=== PATIENT | female | born 1970 | race Caucasian/White ===

== ENCOUNTER 2018-02-21 09:50 | Emergency (ER) | payer SELFPAY ==
--- NOTE | 2018-02-21 10:57 | ER ---
Nurse's Notes [facility] Name: Brodie Irwin Age: 47 yrs Sex: Female : 1970 Arrival Date: 02/21/2018 Time: 09:53 Bed 24 Private MD: None, None Diagnosis: Encounter for screening, unspecified Presentation: 02/21 10:07 Presenting complaint: Patient states: "I think I got bitten by a spider yesterday". Pt aa5 reports insect bite to right thumb. Transition of care: patient was not received from another setting of care. Onset of symptoms was February 2018. Risk Assessment: Do you want to hurt yourself or someone else? Patient reports no desire to harm self or others. Initial Sepsis Screen: Does the patient meet any 2 criteria? No. Patient's initial sepsis screen is negative. Does the patient have a suspected source of infection? No. Patient's initial sepsis screen is negative. Care prior to arrival: None. 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 - Social history:: Smoking status: Patient uses tobacco products, smokes one-half pack cigarettes per day. - Ebola Screening: : No symptoms or risks identified at this time. Assessment: 10:35 Reassessment: pt approaches main nurse's station, speaking loudly, standing in front of iw Dr. Chi's desk, states "I wanna know why you aren't treating me medically for my spider bite and fever blister" Dr. Chi calmly explained that he was not denying her treatment and that if she wan't to speak more about the process he would speak with her in the room, pt is refusing to go back to her room, ER bed 24, security called to Nurse's Station and are speaking to pt, pt has been medically screened and has declined medical treatment, pt escorted out od dept by security staff. Vital Signs: 10:08 BP 141 / 86; Pulse 110; Resp 16 S; Temp 97.8(TE); Pulse Ox 96% on R/A; Weight 72.57 kg aa5 (R); Height 5 ft. 8 in. (172.72 cm) (R); Pain 8/10; 10:08 Body Mass Index 24.33 (72.57 kg, 172.72 cm) aa5 ED Course: 09:53 Patient arrived in ED. mr 09:53 None, None is Private Physician. mr 10:07 Triage completed. aa5 10:07 Arm band placed on. aa5 10:16 Lo Ybarra, RN is Primary Nurse. aj1 10:27 Jairo Chi MD is Attending Physician. gs Administered Medications: No medications were administered Outcome: 10:56 Discharge ordered by . 11:03 Medical screen evaluation completed per provider. Patient declined treatment. aj1 11:03 Condition: good 11:03 Following a medical screening exam, the patient was provided information regarding alternative care sites and resources available per registration personnel. 11:04 Patient left the ED. aj1 Signatures: Lo Ybarra, RN RN aj Angelic Chen Johanna Geller, RN MARQUIS Cathy Mccrary RN RN aa5 Jairo Chi MD MD
--- NOTE | 2018-02-21 10:57 | EDPHYS ---
Physician Documentation [facility] Name: Brodie Irwin Age: 47 yrs Sex: Female : 1970 Arrival Date: 02/21/2018 Time: 09:53 Bed 24 Private MD: None, None ED Physician Jairo Chi HPI: 02/21 10:40 This 47 yrs old Female presents to ER via Ambulatory with complaints of gs Insect Bite. 10:40 Description: The affected area is very small, draining. Onset: The symptoms/episode gs began/occurred 2 day(s) ago, and became persistent today. Possible cause(s): insect sting, spider bite, pt says it was a furry spider, and blistering on right thumb. blister popped and bled today brought picture of it bleeding. Associated signs and symptoms: Pertinent negatives: fever, swelling. Modifying factors: the symptoms are alleviated by nothing, the symptoms are aggravated by nothing. Severity of symptoms: At their worst the symptoms were very mild, in the emergency department the symptoms are unchanged. The patient has not experienced similar symptoms in the past. 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 - Social history:: Smoking status: Patient uses tobacco products, smokes one-half pack cigarettes per day. - Ebola Screening: : No symptoms or risks identified at this time. ROS: 10:40 Skin: Positive for says has tender area in nose left nare is a fever blister is gs concerned it will turn into shingles wants valtrex to treat. 10:40 All other systems are negative. Exam: 10:40 Head/Face: Normocephalic, atraumatic. Eyes: Pupils equal round and reactive to light, gs extra-ocular motions intact. Lids and lashes normal. Conjunctiva and sclera are non-icteric and not injected. Cornea within normal limits. Periorbital areas with no swelling, redness, or edema. Neck: Trachea midline, no thyromegaly or masses palpated, and no cervical lymphadenopathy. Supple, full range of motion without nuchal rigidity, or vertebral point tenderness. No Meningismus. Chest/axilla: Normal chest wall appearance and motion. Nontender with no deformity. No lesions are appreciated. Cardiovascular: Regular rate and rhythm with a normal S1 and S2. No gallops, murmurs, or rubs. Normal PMI, no JVD. No pulse deficits. Respiratory: Lungs have equal breath sounds bilaterally, clear to auscultation and percussion. No rales, rhonchi or wheezes noted. No increased work of breathing, no retractions or nasal flaring. Abdomen/GI: Soft, non-tender, with normal bowel sounds. No distension or tympany. No guarding or rebound. No evidence of tenderness throughout. Back: No spinal tenderness. No costovertebral tenderness. Full range of motion. 10:40 Constitutional: The patient appears alert, awake. 10:40 ENT: Nose: Nasal mucosa: erythematous, no lesion no fever blister, mild mucosal tenderness. 10:40 Musculoskeletal/extremity: ROM: no acute changes, Circulation is intact in all extremities. Sensation intact. 10:40 Skin: cellulitis, is not appreciated, injury, small puncture or insect bite to volar right thumb no drainage. pt states she unroofed blister with needle and bled. 10:40 Psych: Behavior/mood is anxious. 10:57 Musculoskeletal/extremity: Edema, 1+ to the left foot and right foot is noted, trace gs edema. Vital Signs: 10:08 BP 141 / 86; Pulse 110; Resp 16 S; Temp 97.8(TE); Pulse Ox 96% on R/A; Weight 72.57 kg aa5 (R); Height 5 ft. 8 in. (172.72 cm) (R); Pain 8/10; 10:08 Body Mass Index 24.33 (72.57 kg, 172.72 cm) aa5 MDM: 10:27 Patient medically screened. gs 10:40 Differential diagnosis: insect bite, nasal mucosal irritation rhinitis cellulitis. Data gs reviewed: vital signs, nurses notes. 10:40 ED course: pt upset after mse process, was demanding valtrex for her non fever blister gs i told her i could not prescribe something that wasn't needed. Administered Medications: No medications were administered Disposition: 02/21/18 10:56 Discharged to Home. Impression: Encounter for screening, unspecified. - Condition is Stable. - Medication Reconciliation Form, Thank You Letter, Antibiotic Education, Prescription Opioid Use form. - Follow up: Private Physician; When: 1 - 2 days; Reason: Re-evaluation by your physician. Signatures: Lo Ybarra RN RN aj1 Cathy Mccrary RN RN aa5 Jairo Chi MD MD gs Corrections: (The following items were deleted from the chart) 11:04 10:56 02/21/2018 10:56 Discharged to Home. Impression: Encounter for screening, aj1 unspecified. Condition is Stable. Forms are Medication Reconciliation Form, Thank You Letter, Antibiotic Education, Prescription Opioid Use. Follow up: Private Physician; When: 1 - 2 days; Reason: Re-evaluation by your physician. gs
== END 2018-02-21 11:04 | disposition home or self-care (01) ==
LOC: ER 09:50
DX: S60.361A Insect bite (nonvenomous) of right thumb, initial encounter (principal); W57.XXXA Bitten or stung by nonvenomous insect and other nonvenomous arthropods, initial encounter; Y92.89 Other specified places as the place of occurrence of the external cause; Z13.89 Encounter for screening for other disorder
CPT/HCPCS: 99281

== ENCOUNTER 2018-08-12 12:03 | Emergency (ER) | payer SELFPAY ==
--- OUTSIDE RECORDS SUMMARY | 2018-08-12 12:05 | XMS REPORT | Clinical Summary ---
:1970 Author Organization [facility] Address [address] [place] [address] Care Team Providers Name Role Phone Asked, No Pcp Primary Care Provider Unavailable Allergies Not on File Medications Not on file Active Problems Not on file Social History Tobacco Use Types Packs/Day Years Used Date Never Assessed Sex Assigned at Date Recorded Not on file Job Start Date Occupation Industry Not on file Not on file Not on file Travel History Travel Start Travel End No recent travel history available. Last Filed Vital Signs Not on file Plan of Treatment Health Maintenance Due Date Last Done Comments MMR VACCINES (1 of 1 - Standard 1970 series) VARICELLA VACCINES (1 of 2 - 2-dose 1982 adolescent series) CERVICAL CANCER SCREENING 1990 INFLUENZA VACCINE 04/19/2018 HEPATITIS B VACCINES Aged Out No longer eligible based on patient's age to complete this topic IPV VACCINES Aged Out No longer eligible based on patient's age to complete this topic MENINGOCOCCAL VACCINE Aged Out No longer eligible based on patient's age to complete this topic Results Not on fileafter 08/11/2017 Advance Directives Patient has advance care planning documents on file. For more information, please contact:[phone] [place] [address]
== END 2018-08-12 12:17 | disposition left against medical advice (07) ==
LOC: ER 12:03
DX: Z53.21 Procedure and treatment not carried out due to patient leaving prior to being seen by health care provider (principal); R07.9 Chest pain, unspecified

== ENCOUNTER 2018-08-14 08:28 | Inpatient (IN) | payer SELFPAY ==
--- OUTSIDE RECORDS SUMMARY | 2018-08-14 08:30 | XMS REPORT | Clinical Summary ---
:1970 Author Organization [facility] Address [address] [place] [address] Care Team Providers Name Role Phone Asked, [...] complete this topic Results Not on fileafter 08/13/2017 Advance Directives Patient has advance care planning documents on file. For more information, please contact:[phone] [place] [address]
[2018-08-14] MEDS ORDERED: ONDANSETRON 4 MG/2 ML VIAL ONE ×2 (08:51→21:43)
[2018-08-14] MEDS ORDERED: DIAZEPAM 10 MG/2 ML INJ SYRINGE ONE ×6 (08:52→22:38)
[2018-08-14] MEDS ORDERED: NA CHLORIDE 0.9% 1,000 ML ONE (08:52)
[2018-08-14 08:59] LABS: Absolute Lymphocytes (CBC) 1.5 K/uL (0.7-4.9); Absolute Monocytes 0.3 K/uL (0.1-1.3); Absolute Neutrophil 3.3 K/uL (1.8-8.0); Basophils % 0.4 % (0-1.3); Eosinophils % 0.2 % (0-4.4); Hematocrit 37.4 % (36.0-45.0); Lymphocytes % 29.8 % (15.3-44.8); MCH 32.9 pg (27.0-35.0); MCV 96.8 fL (80-100); MPV 8.2 fL (7.6-11.3); Monocytes % 6.7 % (3.3-12.3); RBC Red Blood Cell Count 3.86 M/uL (3.86-4.86)
--- NOTE | 2018-08-14 09:24 | RAD REPORT ---
EXAM DESCRIPTION: RAD - Chest Single View - 08/14/2018 9:16 am CLINICAL HISTORY: Chest pain;Palpitations Chest pain. COMPARISON: No comparisons FINDINGS: Portable technique limits examination quality. The lungs are grossly clear. The heart is normal in size. No displaced fractures. IMPRESSION: No acute intrathoracic process suspected.
[2018-08-14] MEDS ORDERED: FOLIC ACID 1 MG, THIAMINE HCL 100 MG, MULTIVITAMINS INJ 10 ML in NA CHLORIDE 0.9% 1,000 ML IV ONE (09:30)
[2018-08-14 09:44] LABS: ALT/SGPT 39 U/L (12-78); AST/SGOT 53 U/L (15-37); Albumin 3.5 g/dL (3.4-5.0); Alkaline Phosphatase 71 U/L (45-117); BUN Blood Urea Nitrogen 6 mg/dL (7-18); Bicarbonate 26 mmol/L (21-32); Bilirubin Direct 0.3 mg/dL (0-0.2); Glucose Level 79 mg/dL (74-106); Potassium 3.4 mmol/L (3.5-5.1); Sodium Level 137 mmol/L (136-145); Troponin (Emerg Dept Use Only) < 0.02 ng/mL (0.0-0.045)
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
--- NOTE | 2018-08-14 10:45 | EDPHYS ---
Physician Documentation [facility] Name: Brodie Irwin Age: 47 yrs Sex: Female : 1970 Arrival Date: 08/14/2018 Time: 08:33 Bed 28 Private MD: ED Physician Henry Guardado HPI: 08/14 08:35 This 47 yrs old Female presents to ER via Unassigned with complaints of rn doesn't feel right, chest pain, palpitations, tremors. 08:35 The patient presents with a history of heart racing. Context: The symptoms occur at rn rest. Onset: The symptoms/episode began/occurred last night. Modifying factors: The symptoms are aggravated by nothing. The symptoms are alleviated by nothing. Severity of symptoms: At their worst the symptoms were moderate in the emergency department the symptoms are unchanged. The patient has experienced similar episodes in the past. Reports recovering alcoholic, has been on a binge for last 5 days, reports numerous bottles of wine, last drink yesterday, thought to take xanax, 2mg tablets to feel better, reports over last 24 hours has taken about 10-15 tablets of xanax, nothing else, feels tremors, shaking, palpitations, chest pain, slurred speech, and "feels terrible". No trauma. Not suicidal. EMS states walked down the street to meet them.. Historical: - Allergies: 08:33 No Known Allergies; aa5 - Home Meds: 08:33 Xanax 2 mg Oral tab [Active]; aa5 - PMHx: 08:33 PTSD; aa5 - Immunization history:: Adult Immunizations unknown. - Social history:: Smoking status: Patient uses tobacco products, smokes one-half pack cigarettes per day, Patient uses alcohol, on a daily basis. Patient/guardian denies using street drugs. - Family history:: not pertinent. - Ebola Screening: : No symptoms or risks identified at this time. - Hospitalizations: : No recent hospitalization is reported. ROS: 08:35 Constitutional: Negative for fever, chills, and weight loss, Eyes: Negative for injury, rn pain, redness, and discharge, Neck: Negative for injury, pain, and swelling, Cardiovascular: + chest pain and palpitations Respiratory: Negative for shortness of breath, cough, wheezing, and pleuritic chest pain, Abdomen/GI: + nausea, no abd pain Back: Negative for injury and pain, MS/Extremity: Negative for injury and deformity, Skin: Negative for injury, rash, and discoloration, Neuro: + generalized weakness and shakes Exam: 08:35 Constitutional: This is a well developed, well nourished patient who is awake, alert, rn anxious, tremulous Head/Face: Normocephalic, atraumatic. Eyes: Pupils equal round and reactive to light, extra-ocular motions intact. Lids and lashes normal. Conjunctiva and sclera are non-icteric and not injected. Cornea within normal limits. Periorbital areas with no swelling, redness, or edema. No nystagmus ENT: dry MM Cardiovascular: tachycardic, regular, no murmur Respiratory: mild tachypnea, no retractions, no wheezing, speaking full sentences Abdomen/GI: soft, non-tender MS/ Extremity: Pulses equal, no cyanosis. Neurovascular intact. Full, normal range of motion. Equal circumference. Neuro: Awake and alert, GCS 15, oriented to person, place, and situation. Cranial nerves II-XII grossly intact. Motor strength 5/5 in all extremities. Sensory grossly intact. + all 4 extremity coarse tremors, + tongue fasciculations. Ambulatory to bed from stretcher. Vital Signs: 08:35 BP 162 / 111; Pulse 125; Resp 22 S; Temp 97.0(TE); Pulse Ox 98% on R/A; Pain 10/10; aa5 09:15 BP 151 / 84; Pulse 103; Resp 16 S; Pulse Ox 97% on R/A; aa5 10:42 BP 138 / 87; Pulse 108; Resp 16 S; Pulse Ox 95% on R/A; aa5 11:22 BP 157 / 91; Pulse 114; Resp 22 S; Pulse Ox 100% on R/A; aa5 MDM: 08:34 Patient medically screened. rn 10:34 Differential diagnosis: arrythmia, dehydration, stress disorder, alcohol withdrawal. rn Data reviewed: vital signs, nurses notes, lab test result(s), EKG, radiologic studies, plain films, and as a result, I will admit patient. Counseling: I had a detailed discussion with the patient and/or guardian regarding: the historical points, exam findings, and any diagnostic results supporting the discharge/admit diagnosis, lab results, radiology results, the need for further work-up and treatment in the hospital. Response to treatment: the patient's symptoms have mildly improved after treatment, and as a result, I will admit patient. Admission orders: after a detailed discussion of the patient's condition and case, the admit orders are written by me. ED course: Pt without clinical signs of benzo overdose, clinically more of a delirium tremens/ETOH withdrawal, improved with valium, is ambulatory, feels a little better, will admit for alcohol withdrawal. . 08/14 08:35 Order name: Acetaminophen; Complete Time: 10:08 08/14 08:35 Order name: Basic Metabolic Panel; Complete Time: 10:08 08/14 08:35 Order name: CBC with Diff; Complete Time: 09: 08/14 08:35 Order name: ETOH Level; Complete Time: 09:25 08/14 08:35 Order name: Hepatic Function; Complete Time: 10:08 08/14 08:35 Order name: Salicylate; Complete Time: 09:40 08/14 08:35 Order name: Urine Drug Screen; Complete Time: 11:36 08/14 08:35 Order name: Troponin (emerg Dept Use Only); Complete Time: 10:08 08/14 10:35 Order name: Urine Dipstick--Ancillary (enter results); Complete Time: 11:36 08/14 10:35 Order name: Urine --Ancillary (enter results); Complete Time: 11:36 08/14 13:07 Order name: T4 Free; Complete Time: 07:16 [facility] 08/14 13:07 Order name: Thyroid Stimulating Hormone; Complete Time: 07:16 [facility] 08/15 05:39 Order name: CBC with Automated Diff; Complete Time: 07:16 [facility] 08/15 05:48 Order name: Comprehensive Metabolic Panel; Complete Time: 07:16 [facility] 08/14 08:35 Order name: Urine Test (obtain specimen); Complete Time: 10:16 08/14 08:35 Order name: EKG; Complete Time: 08:36 08/14 08:35 Order name: EKG - Nurse/Tech; Complete Time: 09:02 08/14 08:35 Order name: IV Saline Lock; Complete Time: 08:36 08/14 08:35 Order name: Labs collected and sent; Complete Time: 08:36 rn 08/14 08:35 Order name: XRAY Chest (1 view) - STROKE; Complete Time: 09:25 rn 08/14 12:12 Order name: Diet Regular; Complete Time: 12:14 dm5 08/15 05:48 Order name: Lipid Profile; Complete Time: 07:16 EDMS 08/15 05:48 Order name: Magnesium; Complete Time: 07:16 EDMS 08/14 08:35 Order name: Urine Dipstick-Ancillary (obtain specimen); Complete Time: 10:16 rn Administered Medications: 08:40 Drug: NS 0.9% 1000 ml Route: IV; Rate: 1000 ml; Site: right antecubital; aa5 09:43 Follow up: IV Status: Completed infusion aa5 08:40 Drug: Valium 10 mg Route: IVP; Site: right antecubital; aa5 09:00 Follow up: Response: No adverse reaction; No change in condition aa5 08:40 Drug: Zofran 4 mg Route: IVP; Site: right antecubital; aa5 08:50 Follow up: Response: No adverse reaction aa5 09:10 Drug: Valium 10 mg Route: IVP; Site: right antecubital; aa5 09:15 Follow up: Response: No adverse reaction; Marked relief of symptoms aa5 09:32 Drug: Banana Bag - (NS 0.9% 1000 ml, foLIC Acid 1 mg, Thiamine 100 mg, Multivitamin 1 jl7 amp) Route: IV; Rate: calculated rate; Site: right antecubital; :43 Follow up: Infusing at 300cc/hr per Dr. Guardado's VO aa5 13:00 Follow up: IV Status: Completed infusion aa5 10:40 Drug: Valium 10 mg Route: IVP; Site: right antecubital; aa5 10:50 Follow up: Response: No adverse reaction; Marked relief of symptoms aa5 13:06 Drug: Valium 10 mg Route: IVP; Site: right antecubital; aa5 13:10 Follow up: Response: No adverse reaction aa5 Disposition: 08/14/18 10:36 Hospitalization ordered by Chaparro Sinha for Inpatient Admission. Preliminary diagnosis are Alcohol dependence with withdrawal, Chest pain, unspecified, Hypokalemia. - Bed requested for Telemetry/MedSurg (Inpatient). - Status is Inpatient Admission. ss - Condition is Stable. - Problem is new. - Symptoms have improved. UTI on Admission? No Critical care time excluding procedures: 10:34 Critical care time: Bedside Care: 30 minutes, Consultation: 5 minutes. Total time: 35 rn minutes Signatures: Dispatcher [employer] EDMS WinnieIgnacia chang Henry Morales MD MD rn Calderon, Audri RN RN aa5 Nan Sahni RN RN ss Leal, Jahala, RN RN jl7 Corrections: (The following items were deleted from the chart) 08:40 08:35 Reports recovering alcoholic, has been on a binge for last 5 days, reports rn numerous bottles of wine, last drink yesterday, thought to take xanax, 2mg tablets to feel better, reports over last 24 hours has taken about 10-15 tablets of xanax, nothing else, feels tremors, shaking, palpitations, chest pain, slurred speech, and "feels terrible". No trauma. Not suicidal.. rn 12:47 10:36 Hospitalization Ordered by Chaparro Sinha DO for Inpatient Admission. Preliminary ss diagnosis is Alcohol dependence with withdrawal; Chest pain, unspecified; Hypokalemia. Bed requested for Intensive Care Unit. Status is Inpatient Admission. Condition is Stable. Problem is new. Symptoms have improved. UTI on Admission? No. rn 08/15 07:02 08/14 12:47 08/14/2018 10:36 Hospitalization Ordered by Chaparro Sinha DO for Inpatient bd Admission. Preliminary diagnosis is Alcohol dependence with withdrawal; Chest pain, unspecified; Hypokalemia. [facility] Status is Inpatient Admission. Condition is Stable. Problem is new. Symptoms have improved. UTI on Admission? No. ss 08/15 07:57 07:02 08/14/2018 10:36 Hospitalization Ordered by Chaparro Sinha DO for Inpatient bd Admission. Preliminary diagnosis is Alcohol dependence with withdrawal; Chest pain, unspecified; Hypokalemia. Bed requested for Intensive Care Unit. Status is Inpatient Admission. Condition is Stable. Problem is new. Symptoms have improved. UTI on Admission? No. bd 08:35 07:57 08/14/2018 10:36 Hospitalization Ordered by Chaparro Sinha DO for Inpatient ss Admission. Preliminary diagnosis is Alcohol dependence with withdrawal; Chest pain, unspecified; Hypokalemia. Bed requested for Telemetry/MedSurg (Inpatient). Status is Inpatient Admission. Condition is Stable. Problem is new. Symptoms have improved. UTI on Admission? No. bd
[2018-08-14 11:08] LABS: Urine Blood NEGATIVE (NEG); Urine Glucose NEGATIVE (NEG); Urine Protein NEGATIVE (NEG)
[2018-08-14 11:33] LABS: Barbiturates NEGATIVE (NEGATIVE); Benzodiazepines POSITIVE (NEGATIVE); Cocaine NEGATIVE (NEGATIVE); METHAMPHETAM NEGATIVE (NEGATIVE); Methadone NEGATIVE (NEGATIVE); Opiates NEGATIVE (NEGATIVE); Phencyclidine NEGATIVE (NEGATIVE); THC Cannibis NEGATIVE (NEGATIVE)
[2018-08-14] MEDS ORDERED: ONDANSETRON 4 MG/2 ML VIAL IV PRN (12:21)
[2018-08-14] MEDS ORDERED: SODIUM CHLORIDE 0.9% 10ML INJ IV PRN (12:21)
[2018-08-14] MEDS ORDERED: DIAZEPAM 10 MG/2 ML INJ SYRINGE IV PRN (12:26)
--- NOTE | 2018-08-14 12:40 | EKG ---
Test Date: 2018-08-14 Test Time: 08:43:01 Desk Director: CHARO MEASUREMENT RESULTS: Intervals: Rate: 112 ME: 148 QRSD: 84 QT: 342 QTc: 466 [place]: P: 49 ME: 148 QRS: 46 T: 38 INTERPRETIVE STATEMENTS: Sinus tachycardia Possible Left atrial enlargement Low voltage QRS Borderline ECG No previous ECG available for comparison Electronically Signed On 08-14-18 12:39:43 [employer] by Cristino Diego
[2018-08-14 13:06] LABS: Thyroid Stimulating Hormone 1.18 uIU/mL (0.360-3.740)
[2018-08-14] MEDS: DIAZEPAM 10 MG/2 ML INJ SYRINGE IV PRN ×3 (16:20→22:38)
[2018-08-14] MEDS: ACETAMINOPHEN 500 MG TAB PO PRN (16:20)
[2018-08-14] MEDS ORDERED: ACETAMINOPHEN 500 MG TAB ONE (16:41)
[2018-08-14] MEDS: chlordiazePOXIDE HCl 25 MG CAP PO SCH (18:00)
[2018-08-14] MEDS ORDERED: chlordiazePOXIDE HCl 25 MG CAP ONE (18:06)
--- NOTE | 2018-08-14 19:05 | P.HP ---
Certification for Inpatient Patient admitted to: Inpatient With expected LOS: >2 Midnights Patient will require the following post-hospital care: None Practitioner: I am a practitioner with admitting privileges, knowledge of patient current condition, hospital course, and medical plan of care. Services: Services provided to patient in accordance with Admission requirements found in Title 42 Section 412.3 of the Code of Federal Regulations Patient History Date of Service: 08/14/18 Primary Care Provider: Dr. Howard([facility]) Reason for admission: Altered mental status, agitation History of Present Illness: 47-year-old female presented emergency room with mild altered mental status with agitation. Patient presented with altered mental status with agitation. Patient also had tremors. Patient reports a history of alcohol abuse, tobacco abuse and PTSD. He is seen by psychiatry. She admits drinking excessive amounts of alcohol recently. She reported that she was on an alcohol [place]reg[place]. Patient has been trying stop. She also reports taking benzodiazepine to help with the shakes. Patient denies any significant chest pain, shortness of breath. Patient came to the ER for further evaluation and treatment. Patient evaluated in the emergency room. Patient appeared to be in alcohol withdrawal. Patient given 30 mg of IV Valium. Patient also given IV banana bag and IV fluids. Lab reviewed. Chest x-ray unremarkable. Alcohol level 94. Urine drug screen positive for benzodiazepine. Patient admitted for further evaluation. Patient evaluated in emergency room. Patient with mild agitation. Patient given more Valium. Allergies No Known Allergies Allergy (Unverified 02/21/18 11:07) Home medications list reviewed: Yes Home Medications: Alprazolam [Xanax] 1 mg PO BEDTIME 08/14/18 - Past Medical/Surgical History Has patient received pneumonia vaccine in the past: No Diabetic: No -: Alcohol abuse -: Tobacco abuse -: PTSD -: Right arm surgery -: Breast augmentation Psychosocial/ Personal History: Patient is . He she has 1 child. She does not work. - Family History Family History: Reviewed- Non-Contributory - Social History Smoking Status: Light Tobacco smoker (1-9 cigarettes/day) Counseled patient to stop smoking for: less than 10 minutes Smoking therapy provided: Yes Patient receptive to therapy: Yes Alcohol use: Yes CD- Drugs: No Caffeine use: Yes Place of Residence: Home Review of Systems General: As per HPI Eyes: Unremarkable ENT: Unremarkable Respiratory: Unremarkable Cardiovascular: Unremarkable Gastrointestinal: Unremarkable Genitourinary: Unremarkable Musculoskeletal: Unremarkable Integumentary: Unremarkable Neurological: As per HPI Lymphatics: Unremarkable Physical Examination - Vital Signs Blood Pressure: 146/84 Pulse: 102 Respirations: 17 Pulse Ox (%): 96 - Physical Exam General: Alert, Cooperative, Mild distress, Other (Patient with mild tremor. Mild agitation noted.) HEENT: Atraumatic, Normocephalic, PERRLA, Other (Dry mucous membranes), EOMI Neck: Supple, No Thyromegaly Respiratory: Clear to auscultation bilaterally, Normal air movement Cardiovascular: Abnormal pulses (Sinus tachycardia) Gastrointestinal: Normal bowel sounds, No tenderness, No masses, No rebound, No guarding Musculoskeletal: No erythema, No tenderness, No warmth Integumentary: No tenderness/swelling, No erythema, No warmth, No cyanosis Neurological: Normal speech, Normal strength at 5/5 x4 extr, Normal tone, Normal affect - Studies Laboratory Data (last 24 hrs) 08/14/18 08:35: WBC 5.2, Hgb 12.7, Hct 37.4, Plt Count 147 L 08/14/18 08:35: Sodium 137, Potassium 3.4 L, BUN 6 L, Creatinine 0.80, Glucose 79, Total Bilirubin 1.0, AST 53 H, ALT 39, Alkaline Phosphatase 71 Assessment and Plan - Plan Impression: Agitation secondary to alcohol withdrawal with history of severe alcohol abuse Tobacco abuse Anxiety Plan: Agitation secondary to alcohol withdrawal with history of severe alcohol abuse: Patient will be admitted. Will start Librium scheduled. Will provide Valium IV if with agitation. Will monitor closely. Will continue banana bag. Will continue with aggressive IV fluid hydration. Will monitor closely. Patient will remain in ICU. Tobacco abuse: Patient may require nicotine patch. Will continue with cessation education. Anxiety: Will monitor closely. Will provide medication as needed. Patient seen by psychiatry as an outpatient. - Advance Directives Does patient have a Living Will: No Does patient have a Durable POA for Healthcare: No - Code Status/Comfort Care Code Status Assessed: Yes (Patient full code.) Time Spent Managing Pts Care (In Minutes): 55
[2018-08-14] MEDS ORDERED: NACHLORIDE 0.45% 1,000 ML IV ONE (20:27)
[2018-08-14] MEDS ORDERED: ENOXAPARIN 40 MG/0.4 ML SQ ONE (20:27)
[2018-08-14] MEDS: NACHLORIDE 0.45% 1,000 ML IV SCH (20:30)
[2018-08-14] MEDS: ENOXAPARIN 40 MG/0.4 ML SQ SCH (20:30)
[2018-08-14] MEDS ORDERED: INFLUENZA VACCINE (for 3y+) 0.5 ML DOSE IMVAC ONE (21:00)
[2018-08-15] MEDS ORDERED: chlordiazePOXIDE HCl 25 MG CAP ONE ×2 (00:34→04:33)
[2018-08-15] MEDS: DIAZEPAM 10 MG/2 ML INJ SYRINGE IV PRN (01:54)
[2018-08-15] MEDS: ACETAMINOPHEN 500 MG TAB PO PRN (02:57)
[2018-08-15] MEDS ORDERED: ACETAMINOPHEN 500 MG TAB ONE (02:58)
[2018-08-15] MEDS ORDERED: NA CHLORIDE 0.9% 1,000 ML ONE (03:30)
[2018-08-15] MEDS: NACHLORIDE 0.45% 1,000 ML IV SCH (04:00)
[2018-08-15] MEDS ORDERED: LORazepam 2 MG/ML VIAL IV ONE (04:30)
[2018-08-15] MEDS: chlordiazePOXIDE HCl 25 MG CAP PO SCH ×3 (05:19→12:46)
[2018-08-15 05:22] LABS: Absolute Lymphocytes (CBC) 1.5 K/uL (0.7-4.9); Absolute Monocytes 0.3 K/uL (0.1-1.3); Absolute Neutrophil 1.7 K/uL (1.8-8.0); Basophils % 0.6 % (0-1.3); Eosinophils % 1.4 % (0-4.4); Hematocrit 37.3 % (36.0-45.0); Lymphocytes % 41.3 % (15.3-44.8); MCH 33.3 pg (27.0-35.0); MCV 98.5 fL (80-100); MPV 8.2 fL (7.6-11.3); Monocytes % 9.4 % (3.3-12.3); RBC Red Blood Cell Count 3.79 M/uL (3.86-4.86)
[2018-08-15 05:48] LABS: Albumin 3.3 g/dL (3.4-5.0); Bilirubin Total 1.6 mg/dL (0.2-1.0); Magnesium 1.7 mg/dL (1.8-2.4); Potassium 3.3 mmol/L (3.5-5.1); Protein, Total 6.6 g/dL (6.4-8.2)
[2018-08-15] MEDS ORDERED: POTASSIUM 25 MEQ EFFERV TAB PO ONE (08:29)
[2018-08-15] MEDS ORDERED: MAGNESIUM SULFATE 1 gm IVPB 1 GM/100 ML BAG IV ONE (08:30)
[2018-08-15] MEDS ORDERED: FOLIC ACID 1 MG, MULTIVITAMINS INJ 10 ML, THIAMINE HCL 100 MG in NA CHLORIDE 0.9% 1,000 ML IV SCH (09:00)
[2018-08-15] MEDS ORDERED: PANTOPRAZOLE 40 MG INJ IVP SCH (09:00)
[2018-08-15] MEDS ORDERED: LORazepam 2 MG/ML VIAL IV PRN ×2 (10:16→10:18)
[2018-08-15 10:18] VITALS: BMI 26.6
[2018-08-15 14:26] VITALS: BP 158/93; TEMP 97.8
--- NOTE | 2018-08-15 15:11 | P.PN ---
Subjective Date of Service: 08/15/18 Primary Care Provider: Dr. Howard([facility]) Chief Complaint: Altered mental status, agitation Subjective: Improving (Less agitation noted today.) Physical Examination - Vital Signs Temperature: 97.8 F Blood Pressure: 158/93 Pulse: 117 Respirations: 20 Pulse Ox (%): 100 - Physical Exam General: Alert, In no apparent distress, Oriented x3, Cooperative HEENT: Atraumatic Neck: Supple Respiratory: Clear to auscultation bilaterally, Normal air movement Cardiovascular: Normal pulses, Regular rate/rhythm Gastrointestinal: Normal bowel sounds, Soft and benign, Non-distended, No tenderness, No masses, No rebound, No guarding Musculoskeletal: No erythema, No tenderness, No warmth Integumentary: No tenderness/swelling, No erythema, No warmth, No cyanosis Neurological: Normal speech, Normal strength at 5/5 x4 extr, Normal tone, Normal affect - Studies Medications List Reviewed: Yes Assessment & Plan Discharge Plan: Home Plan to discharge in: 24 Hours Physician Review Additional Text: Impression: Agitation secondary to alcohol withdrawal with dehydration complicated with history of severe alcohol abuse Tobacco abuse Anxiety Hypokalemia Hypomagnesia Plan: Agitation secondary to alcohol withdrawal with dehydration complicated with history of severe alcohol abuse: Patient less agitated today. Will downgrade her from ICU to the floor. Will continue with Librium. Will provide IV benzodiazepine as needed. Will have physical therapy assess ambulation. Will continue with IV fluids. Will reassess this afternoon. If stable then will consider discharge later today. Alcohol cessation addressed in detail. Patient understands this. Patient plans to quit. Tobacco abuse: Patient may require nicotine patch. Will continue with cessation education. Anxiety: Will monitor closely. Will provide medication as needed. Patient seen by psychiatry as an outpatient. Hypokalemia: Continue monitor and replace appropriately. Hypomagnesia: Will continue to monitor and replace appropriately. Time Spent Managing Pts Care (In Minutes): 55
--- NOTE | 2018-08-15 15:36 | P.DS ---
Admission Date: 08/14/18 Discharge Date: 08/15/18 Primary Care Provider: Dr. Howard([facility]) Disposition: ROUTINE DISCHARGE Discharge Condition: GOOD Reason for Admission: Altered mental status, agitation Consultations: none Procedures: Medical Problem list: Agitation secondary to alcohol withdrawal with dehydration complicated with history of severe alcohol abuse Tobacco abuse Anxiety with history of PTSD Hypokalemia Hypomagnesia Brief History of Present Illness: 47-year-old female presented emergency room with mild altered mental status with agitation. Patient presented with altered mental status with agitation. Patient also had tremors. Patient reports a history of alcohol abuse, tobacco abuse and PTSD. He is seen by psychiatry. She admits drinking excessive amounts of alcohol recently. She reported that she was on an alcohol [place]reg[place]. Patient has been trying stop. She also reports taking benzodiazepine to help with the shakes. Patient denies any significant chest pain, shortness of breath. Patient came to the ER for further evaluation and treatment. Patient evaluated in the emergency room. Patient appeared to be in alcohol withdrawal. Patient given 30 mg of IV Valium. Patient also given IV banana bag and IV fluids. Lab reviewed. Chest x-ray unremarkable. Alcohol level 94. Urine drug screen positive for benzodiazepine. Patient admitted for further evaluation. Patient evaluated in emergency room. Patient with mild agitation. Patient given more Valium. Hospital Course: Patient was admitted for agitation secondary to alcohol withdrawal with dehydration complicated with history of severe alcohol abuse. Patient was given IV fluids and banana bag. Patient was also given benzodiazepine. Patient did well in the course of her stay. At discharge she is without significant agitation or alcohol withdrawal symptoms. At discharge patient plans to quit. She does not desire to drink in the future. Patient will be given a tapered dose of Librium to be use as needed. She will continue with Librium 25 mg 1 pill twice daily for the next 3 days then 1 pill daily for 3 days thereafter if with severe agitation and alcohol withdrawal. Recommendation is for the patient follow up with her psychiatrist to further evaluate and address. Patient may benefit with alcoholics anonymous enrollment. Tobacco cessation addressed in detail. Patient with anxiety related to PTSD. Patient is seen by psychiatry. Patient will continue with her medication as directed. Patient continues with vitamin supplementation. This can be further monitored as an outpatient. Vital Signs/Physical Exam: Temp Pulse Resp BP Pulse Ox 97.8 F 117 H 20 158/93 H 100 08/15/18 15:10 11/27/18 15:10 08/15/18 15:10 08/15/18 15:10 08/15/18 15:10 General: Alert, In no apparent distress, Oriented x3, Cooperative HEENT: Atraumatic, Mucous membr. moist/pink Neck: Supple Respiratory: Clear to auscultation bilaterally, Normal air movement Cardiovascular: Normal pulses, Regular rate/rhythm Gastrointestinal: Normal bowel sounds, Soft and benign, Non-distended, No tenderness, No masses, No rebound, No guarding Musculoskeletal: No erythema, No tenderness, No warmth Integumentary: No tenderness/swelling, No erythema, No warmth, No cyanosis Neurological: Normal speech, Normal strength at 5/5 x4 extr, Normal tone, Normal affect Laboratory Data at Discharge: WBC 3.5 K/uL (4.3-10.9) L D 08/15/18 05:00 Hgb 12.6 g/dL (12.0-15.0) 08/15/18 05:00 Hct 37.3 % (36.0-45.0) 08/15/18 05:00 Plt Count 114 K/uL (152-406) L D 08/15/18 05:00 Sodium 140 mmol/L (136-145) 08/15/18 05:00 Potassium 3.3 mmol/L (3.5-5.1) L 08/15/18 05:00 BUN 5 mg/dL (7-18) L 08/15/18 05:00 Creatinine 0.70 mg/dL (0.55-1.3) 08/15/18 05:00 Glucose 85 mg/dL (74-106) 08/15/18 05:00 Magnesium 1.7 mg/dL (1.8-2.4) L 08/15/18 05:00 Total Bilirubin 1.6 mg/dL (0.2-1.0) H 08/15/18 05:00 AST 40 U/L (15-37) H 08/15/18 05:00 ALT 31 U/L (12-78) 08/15/18 05:00 Alkaline Phosphatase 73 U/L (45-117) 08/15/18 05:00 Triglycerides 79 mg/dL (<150) 08/15/18 05:00 Cholesterol 175 mg/dL (<200) 08/15/18 05:00 HDL Cholesterol 95 mg/dL (40-60) H 08/15/18 05:00 Cholesterol/HDL Ratio 1.84 08/15/18 05:00 Home Medications: Alprazolam [Xanax] 1 mg PO BEDTIME 08/14/18 chlordiazePOXIDE HCl [Librium*] 25 mg PO SEECOM #10 cap 08/15/18 New Medications: chlordiazePOXIDE HCl [Librium*] 25 mg PO SEECOM #10 cap Patient Discharge Instructions: 1. Patient will need to follow up with her PCP and psychiatry as directed. 2. Patient was admitted for agitation secondary to alcohol withdrawal with dehydration complicated with history of severe alcohol abuse. Patient was given IV fluids and banana bag. Patient was also given benzodiazepine. Patient did well in the course of her stay. At discharge she is without significant agitation or alcohol withdrawal symptoms. At discharge patient plans to quit. She does not desire to drink in the future. Patient will be given a tapered dose of Librium to be use as needed. She will continue with Librium 25 mg 1 pill twice daily for the next 3 days then 1 pill daily for 3 days thereafter if with severe agitation and alcohol withdrawal. Recommendation is for the patient follow up with her psychiatrist to further evaluate and address. Patient may benefit with alcoholics anonymous enrollment. 3. Tobacco cessation addressed in detail. 4. Patient with anxiety related to PTSD. Patient is seen by psychiatry. Patient will continue with her medication as directed. 5. Patient continues with vitamin supplementation. This can be further monitored as an outpatient. Diet: AHA Activity: Fall precautions Time spent managing pt's care (in minutes): 55
[2018-08-15 15:42] VITALS: O2SAT 96
[2018-08-15] MEDS: ENOXAPARIN 40 MG/0.4 ML SQ SCH (16:45)
== END 2018-08-15 17:20 | disposition home or self-care (01) | DRG 897 ==
LOC: ER 08:28 → ERHOLD 10:37 → 2ND 08-15 08:02
PROVIDERS: ADMIT Family Medicine; ATTEND Family Medicine
DX: F10.239 Alcohol dependence with withdrawal, unspecified (principal); R45.1 Restlessness and agitation; R25.1 Tremor, unspecified; E86.0 Dehydration; E87.6 Hypokalemia; E83.42 Hypomagnesemia; F41.9 Anxiety disorder, unspecified; F43.10 Post-traumatic stress disorder, unspecified; F17.210 Nicotine dependence, cigarettes, uncomplicated
CPT/HCPCS: 36415; 71045; 80048; 80053; 80061; 80076; 80307; 80320; 80329; 81003; 81025; 83735; 84132; 84439; 84443; 84484; 85025; 93005; 96361; 96365; 96366; 96375; 97163; 99285; C9113; J1650; J2405; J3360; J3411; J3475; J7030